=== PATIENT | female | born 1955 | race Caucasian/White ===

== ENCOUNTER 2020-07-20 11:40 | Inpatient (IN) | payer OTHER ==
[~2020-07-20] VITALS: Ht 177.8 cm; Wt 131.5 kg
--- NOTE | ~2020-07-20 | HC ---
[facility] [place] [address] CONSULTATION Name: BRISEIDA ARCHULETA Room #: 362-P [facility] IN .R.#: [id number] Admission: 07/20/20 Attend Phys: Ramiro Alvarez MD Discharge: Date of : 53 Report #: [id number] THIS REPORT FOR: cc: Jeremi Larios MD, Shyam MD Lundgren, Craig H. MD FACC ~ CC: Ramiro Larios DATE OF SERVICE: 07/20/2020 REASON FOR CONSULTATION: Atrial fibrillation. HISTORY OF PRESENT ILLNESS: The patient is a 64-year-old woman who has had a prior stroke with severe anoxic encephalopathy. She has had a prior PEG tube and tracheostomy and is nonverbal. Apparently, she had a fall at the assisted facility and was dropped 3-1/2-4 feet from a Aleah lift. She sustained a hematoma and laceration to the back of her head. When she presented to the Emergency Room, her atrial fibrillation rates were quite fast. She has also had fevers. It is uncertain whether the assisted facility has been plagued by COVID or not. ALLERGIES: SHE IS ALLERGIC TO QUINAPRIL. MEDICATIONS: Include apixaban 5 mg twice daily, atorvastatin 40 mg daily, digoxin 0.25 mg daily, diltiazem 90 mg every 6 hours, insulin, metoprolol 150 mg twice daily, Protonix, Aldactone 25 mg twice daily. PAST MEDICAL HISTORY: Medical records include a history of stroke, anoxic encephalopathy, sacral decubitus, tracheostomy, bladder infection, diabetes, morbid obesity, and sleep apnea. SOCIAL HISTORY: Not obtainable. FAMILY HISTORY: Not obtainable. REVIEW OF SYSTEMS: Not obtainable. PHYSICAL EXAMINATION: GENERAL: Reveals a comatose woman. VITAL SIGNS: Blood pressure is 133/71, heart rate of 82 and irregular. She is febrile. Weight is 250 pounds, 5 feet 10 inches tall. HEENT: There are neither xanthelasma, subcutaneous xanthomata, oral mucosal, digital cyanosis or kyphoscoliosis present. CHEST: Clear to auscultation and percussion. CARDIAC: An irregularly irregular rhythm with normal S1, S2. [facility] [address] [place] [address] CONSULTATION Name: BRISEIDA ARCHULETA Room #: [facility] IN ..#: [id number] Admission: 07/20/20 Attend Phys: Ramiro Alvarez MD Discharge: Date of : 53 Report #: [id number] ABDOMEN: Soft, obese, nontender. EXTREMITIES: Reveal trace edema. Radial pulses are 2+. NEUROLOGIC: She is encephalopathic. LABORATORY DATA: Sodium is 135, potassium 4.6, and creatinine 0.5. CRP of 118. Troponin of 0. White count is 17, hemoglobin 14, hematocrit 45, and platelet count 244. COVID antigen is negative. Chest x-ray demonstrates no acute abnormalities. EKG: Atrial fibrillation. IMPRESSION: 1. Permanent atrial fibrillation. 2. Prior stroke with encephalopathy, prior PEG and trach placement. 3. Fall with injury. 4. Diabetes. 5. Decubitus ulcer. 6. Fever. RECOMMENDATIONS: 1. Resume rate controlling medications. 2. Atrial fibrillation, rates may be quite challenging to control in this setting until fever and is controlled based on her medication list and the high doses of numerous rate controlling medicines, I suspect that her atrial fibrillation rates have been hard to control in the past. 3. Thyroid function studies have been ordered. 4. Obtain records from prior hospitalization. By: 56 14 Milind Lou MD, [facility] /nt
--- NOTE | ~2020-07-20 | EMS ---
[address] [address] EMS Patient Care Report Name: BRISEIDA ARCHULETA Room #: REG LUIS Roman#: [id number] Admission: 07/20/20 Attend Phys: Discharge: Date of : 53 Report #: [id number] THIS REPORT FOR: //name// Report Transmitted: 07/20/2020 13:18 EMS Care Summary [facility] MED-ACT Incident [id number] @ 07/20/2020 10:56 Incident Location [address] [place] [address] Patient BRISEIDA ARCHULETA Female, 64 Years 1955 Patient Address [address] [place] [address] Patient History Stroke/CVA,Hyperlipidemia, Patient Allergies No known allergies, Patient Medications Atorvastatin, Acetaminophen, Apixaban, Chief Complaint head injury Disposition Transported No Lights/[place] Reason Falls Transported To [facility] Narrative Upon arrival pt was lying on the floor, presented w/o distress. Pt came recently to rehab for post care after having a stroke. Pt would respond to [address] [address] EMS Patient Care Report Name: BRISEIDA ARCHULETA Room #: REG Yoav.#: [id number] Admission: 07/20/20 Attend Phys: Discharge: Date of : 53 Report #: [id number] questions by rolling her eyes. Pt had a trach and oxygen was provided through it at 4 LPM. RN reported that they were transferring the pt into her bed by using the Aleah lift device when the pt slid from the lift and fell head first 3 to 4 feet. Pt had small swelling on R occipital area. RN reported that pt was not on blood thinners and she could be transported to [facility]. RN advised that [facility] was in high volume and then stated [facility] was her hospital references. Crew placed Aleah sheet underneath the pt and then lifted her into the stretcher w/o difficulty. No obvious deformity or injuries have been noticed upon exam. Trach suction x1 on scene. Pt was provided oxygen via NRM that was placed over the trach and sat on 10 LPM. In the unit, punchboard filling machine operator, and continue monitoring VS. Pt vitals were monitored and remained stable during transport. At the facility, ED nurse reported that rehab facility gave her report and reported that pt was on blood thinners. Pt was moved to the assigned bed by sheet lift and then pt care turned over ED nurse. 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,BP: 101/60 M,PULSE: ,RR: R,SPO2: 95 Ox,ETCO2: ,BG: ,PAIN: ,GCS: , 10:54,Call Received 10:54,Psap Call 10:56,Dispatched 10:57,En Route 11:04,On Scene 11:08,At Patient 11:24,Depart Scene 11:25,BP: 101/66 M,PULSE: 140,RR: 16 R,SPO2: 95 Ox,ETCO2: ,BG: ,PAIN: 0,GCS: 6, 11:33,BP: 141/84 M,PULSE: 139,RR: 18 R,SPO2: 95 Ox,ETCO2: ,BG: ,PAIN: 0,GCS: , 11:36,At Destination 12:03,Call Closed Disclaimer v1.1 Copyright 2020 [employer] [address] [address] EMS Patient Care Report Name: BRISEIDA ARCHULETA [id number] Admission: 07/20/20 Attend Phys: Discharge: Date of : 53 Report #: [id number] This EMS Care Summary contains data elements from the applicable legal record (which may be displayed differently). It is designed to provide pertinent information for the following purposes: continuity of care, clinical quality, and state data reporting. The complete legal record is available to ED staff and administrators of the receiving hospital in [facility]'s Patient Tracker. All data is provided "as is."
[2020-07-20 11:41] VITALS: BP 118/78
[2020-07-20] MEDS ORDERED: ACETAMINOP650 MG/20. PER TUBE (11:49)
[2020-07-20] MEDS ORDERED: ELIQUIS5 M1 PER TUBE (11:49)
[2020-07-20] MEDS ORDERED: LIPITOR40 MG PER TUBE (11:50)
[2020-07-20] MEDS ORDERED: DIGOX250 MCG PER TUBE (11:50)
[2020-07-20] MEDS ORDERED: PERIDEX 0.12%473 M1 TOP (11:50)
[2020-07-20] MEDS ORDERED: HORIZANT300 MG PER TUBE (11:51)
[2020-07-20] MEDS ORDERED: DILTIAZEM ER90 M1 PER TUBE (11:51)
[2020-07-20] MEDS ORDERED: GLUCAGON EMERGEN1 M1 SUBQ (11:52)
[2020-07-20] MEDS ORDERED: HUMALOG100 UNIT/1 SUBQ (11:52)
[2020-07-20] MEDS ORDERED: JUVEN PACKET1 EAC1 PER TUBE (11:52)
[2020-07-20] MEDS ORDERED: LANTUS SUBQ (11:53)
[2020-07-20] MEDS ORDERED: SUPER THERAVIT1 EACH PER TUBE (11:54)
[2020-07-20] MEDS ORDERED: TOPROL XL25 MG PER TUBE (11:54)
[2020-07-20] MEDS ORDERED: NORMAL SALINE FL5 ML IV (11:55)
[2020-07-20] MEDS ORDERED: PANTOPRAZOLE SO40 M3 PER TUBE (11:55)
[2020-07-20] MEDS ORDERED: SANTYL OINTMENT30 G1 TOP (12:07)
[2020-07-20] MEDS ORDERED: PRO-STAT AWC L887 ML PER TUBE (12:07)
[2020-07-20] MEDS ORDERED: SPIRONOLACTONE25 MG PER TUBE (12:07)
[2020-07-20 13:55] LABS: ABSOLUTE NEUTROPHILS 12.3 thou/uL (1.4-8.2); BASOPHILS 0.5 % (0.0-2.0); EOSINOPHILS 0.2 % (0.0-3.0); HEMATOCRIT 45.4 % (37.0-47.0); HEMOGLOBIN 14.7 gm/dL (12.0-15.0); LYMPHOCYTES 16.1 % (24.0-44.0); MCH 28.1 pg (26.0-34.0); MCHC 32.4 g/dL (28.0-37.0); MCV 86.5 fL (80.0-100.0); MONOCYTES 11.1 % (1.0-8.0); PLATELET COUNT 244 thou/uL (150-400); POLYS 72.1 % (36.0-66.0); RBC 5.25 mil/uL (4.20-5.00); RDW 16.9 % (10.5-14.5); WBC 17.1 thou/uL (4.0-11.0)
[2020-07-20 14:03] LABS: APTT 27.3 Seconds (24.5-32.8); INR 1.2; PROTIME 12.4 Seconds (9.3-11.4)
[2020-07-20 14:14] LABS: ANION GAP 8 mmol/L (7-16); BUN 21 mg/dL (7-18); CALCIUM 8.9 mg/dL (8.5-10.1); CHLORIDE 98 mmol/L (98-107); CO2 29 mmol/L (21-32); CREATININE 0.5 mg/dL (0.6-1.0); GLUCOSE 153 mg/dL (74-106); POTASSIUM 4.6 mmol/L (3.5-5.1); SODIUM 135 mmol/L (136-145)
[2020-07-20 14:25] LABS: MAGNESIUM 1.8 mg/dL (1.8-2.4); SGOT 25 U/L (15-37); SGPT 19 U/L (30-65); TOTAL BILIRUBIN 0.7 mg/dL (0.2-1.0); TOTAL PROTEIN 7.8 g/dL (6.4-8.2); TROPONIN-I <0.06 ng/mL (<0.06)
[2020-07-20 14:52] LABS: URINE BILIRUBIN NEGATIVE (Negative); URINE BLOOD NEGATIVE (Negative); URINE CLARITY SL CLOUDY; URINE COLOR YELLOW; URINE GLUCOSE-RANDOM* NEGATIVE (Negative); URINE KETONES NEGATIVE (Negative); URINE NITRITE-REFLEX NEGATIVE (Negative); URINE PROTEIN (DIPSTICK) 2+ (Negative); URINE SPECIFIC GRAVITY <= 1.005 (1.005-1.035)
[2020-07-20 14:56] LABS: URINE LEUKOCYTES-REFLEX 3+ (Negative)
[2020-07-20 15:03] LABS: AMORPHOUS PHOSPHATES Many /LPF (None Seen)
[2020-07-20 15:04] LABS: BACTERIA-REFLEX >30 Many /HPF (None Seen)
[2020-07-20 15:06] LABS: CASTS None Seen /LPF (None Seen); SQUAMOUS 4-10 Moderate /LPF (0-3)
[2020-07-20 15:07] LABS: URINE RBC 0-2 Rare /HPF (0-2)
[2020-07-20 16:05] VITALS: BP 127/87
[2020-07-20 16:30] VITALS: BP 127/76
[2020-07-20 17:24] VITALS: BP 126/81
[2020-07-20 17:33] VITALS: BP 126/80
--- NOTE | 2020-07-20 20:09 | NUR ---
ASSUMED CARE APPROX 1715. PT ADMITTED FROM ER TO THIS UNIT. PT W/ TRACH W/ NON-REBREATHER MASK ON @4.5LPM. PT AWAKE AND NONVERBAL. AFIB W/ RVR ON TELE MONITOR. RT CALLED TO ASSIST W/ OXYGEN. PT W/ NO APPARENT PAIN. FEBRILE OF 101. REC'D TYLENOL PER RECTUM IN ER. PT ARRIVED TO UNIT ON CARDIZEM GTT @15MG/HR. TITRATED TO 20MG/HR D/T HR IN 150'S. CONSULTED CARDIOLOGY REGARDING PT'S HR SUSTAINING BTWN 130-160'S. FIRST CALL TO DR. ROE ADVISED TO CONTINUE CARDIZEM GTT W/ NO OTHER INTERVENTION. SECOND CALL TO DR. ROE REGARDING PT'S HR. ORDERS GIVEN TO GIVE CARDIZEM BOLUS 15MG ONE TIME AND LOPRESSOR 5MG Q4 PRN HR>120. BOTH MEDICATIONS GIVEN AND HR IS NOW 100-103. WOUND CARE SAW PT AND MEDICATIONS ORDERED FOR COCCYX WOUND. PT SLOWLY PROGRESSING TOWARDS PLAN OF CARE GOALS.
[2020-07-20 21:19] VITALS: BP 106/64
[2020-07-21] VITALS (8 sets, daily range): BP systolic 106–123; BP diastolic 48–77
[2020-07-21 05:07] LABS: HEMATOCRIT 42.4 % (37.0-47.0); HEMOGLOBIN 13.8 gm/dL (12.0-15.0); MCH 28.3 pg (26.0-34.0); MCHC 32.6 g/dL (28.0-37.0); MCV 86.8 fL (80.0-100.0); RBC 4.88 mil/uL (4.20-5.00); RDW 17.1 % (10.5-14.5); WBC 17.9 thou/uL (4.0-11.0)
[2020-07-21 05:15] LABS: CALCIUM 8.5 mg/dL (8.5-10.1); CREATININE 0.4 mg/dL (0.6-1.0); POTASSIUM 4.2 mmol/L (3.5-5.1)
--- NOTE | 2020-07-21 06:40 | NUR ---
SPENT MAJORITY OF SHIFT TRYING TO GET HR IN CONTROL. DILTIAZEM DRIP AT 20ML/HR, X2 METOPROLOL, PAIN MEDICATION X3, AND 1 TYLENOL SUPPOSITORY. PT NON COMMUNICATIVE. WHITMAN IN PLACE. PEG FLUSHES GREAT. METOPROLOL SUCC CAN NOT BE CRUSHED, SO WHEN CARDIOLOGY ROUNDS WE WILL GET IT CHANGED. LOW LOSS AIR PUMP IN PLACE NOW DUE TO LOW AIDE AND PRESSURE ULCER ON SACRUM.
--- NOTE | 2020-07-21 08:24 | EKG ---
[facility] [address] [place] [address] ELECTROCARDIOGRAM REPORT Name: BRISEIDA ARCHULETA Room #: 362-P ADM IN M.R.#: [id number] Admission: 07/20/20 Attend Phys: Ramiro Alvarez MD Discharge: Date of : 53 Report #: [id number] THIS REPORT FOR: cc: Jeremi Larios MD, Shyam MD Lundgren, Craig H. MD [facility] ~ THIS REPORT FOR: //name// [facility] ED Test Date: 2020-07-20 Test Time: 13:28:02 Pat Name: BRISEIDA ARCHULETA Department: Room: 362 Gender: F Property Caretaker: REGINA : 1955 Requested By: Gilson Chase Order Number: [id number] MD: Milind Lou Measurements Intervals [place] Rate: 150 P: WA: QRS: 16 QRSD: 79 T: 242 QT: 344 QTc: 544 Interpretive Statements Atrial fibrillation ST depression, probably rate related No previous ECG available for comparison Electronically Signed On 07-21-2020 8:24:35 CDT by Milind Lou [email or web address] <ELECTRONICALLY SIGNED> By: Milind Lou MD, [facility] 07/21/20 0824 1328 1328 Milind Lou MD, [facility] /EPI
--- NOTE | 2020-07-21 15:24 | NUR ---
INITIAL ASSESSMENT: SW reviewed chart and spoke with nursing and attending physician. Pt was admitted from [facility]. Pt placed in Enhanced Isolation due to COVID-19. Pt febrile and on O2 via trach. Pt has trach and peg in place. Pt is on IV abx. Pt's test is negative. JONNIE left voice message for pt's , Corey. Updated clinical info to be faxed the facility for review. JONNIE is following to assist as needed with discharge planning.
[2020-07-22 03:38] VITALS: BP 115/69
--- NOTE | 2020-07-22 05:46 | NUR ---
FOLLOWING POC WITH IVF AND IVPB. VANCO TROUGH CAME BACK AT 13, PHARMACY PUT ORDER FOR NEW RX. SPENT NIGHT CHASING THE HR. 2X LOPRESSOR PRN GIVEN, AND 180 OF DILTIAZEM GIVEN. PUT ORDER FOR RESWAB FOR COVID THIS WILL BE THE SECOND PCR PT IS FROM A FACILITY. PEG TUBE FEEDING INFUSING AT 65ML/HR. OBTAINED MINIMAL AMOUNT OF SPUTUM FROM TRACH TO SEND FOR SPUTUM SAMPLE. PT TEMP HOVERED AT 99.8-100.
[2020-07-22 08:19] VITALS: BP 118/69
[2020-07-22 10:44] LABS: HEMATOCRIT 38.9 % (37.0-47.0); HEMOGLOBIN 12.5 gm/dL (12.0-15.0); MCH 28.3 pg (26.0-34.0); MCHC 32.1 g/dL (28.0-37.0); MCV 88.3 fL (80.0-100.0); RDW 17.1 % (10.5-14.5); WBC 15.4 thou/uL (4.0-11.0)
[2020-07-22 10:55] LABS: ALBUMIN 1.7 g/dL (3.4-5.0); CALCIUM 8.4 mg/dL (8.5-10.1); CREATININE 0.6 mg/dL (0.6-1.0); POTASSIUM 4.5 mmol/L (3.5-5.1); TOTAL BILIRUBIN 0.8 mg/dL (0.2-1.0); TOTAL PROTEIN 7.1 g/dL (6.4-8.2)
[2020-07-22 11:01] VITALS: BP 100/70
[2020-07-22 12:12] LABS: ABSOLUTE NEUTROPHILS 11.6 thou/uL (1.4-8.2); ANISOCYTOSIS SLIGHT; ATYPICAL LYMPHS 1 %; LARGE PLATELETS OCCASIONAL; POIKILOCYTOSIS SLIGHT
[2020-07-22 12:13] LABS: PLATELET COUNT 211 thou/uL (150-400)
--- NOTE | 2020-07-22 14:02 | NUR ---
JONNIE received call from pt's , Shai. Provided update. Pt had repeat COVID test ordered and results are pending. Shai states he does not want pt to return to [facility]. Pt fell from the philomena lift and was brought to the ER. Pt had CVA in February of this year. Pt was hospitalized at [facility]. Then went to [facility], then discharged to [facility]. When [facility] closed, pt was transferred to [facility]. Pt's spouse has been working on a [place] Medicaid application. He is pt's legal guardian/conservator. JONNIE discussed available Medicare days (Acute and SNF). Pt's spouse requests that pt receive higher level of care, than what she was receiving at [facility]. JONNIE discussed options of LTAC or alternate SNF placement. Explained barrier to finding a SNF/LTC facility that will accept a pt with a trach. Pt's spouse verbalized understanding and requests referral to be sent to [facility] for review. JONNIE faxed referral/COVID test results/Rev codes to [facility] and notified liaison of new referral. Awaiting input from [facility] at this time. JONNIE requested attending physician to speak with spouse. JONNIE is following to assist as needed with discharge planning.
[2020-07-22 15:30] VITALS: BP 103/64
--- NOTE | 2020-07-22 17:50 | NUR ---
PT CARE ASSUMED AT 0700, PT AWAKE, NONVERBAL BUT RESPONSE TO PAIN. PT HAS A TRACH WITH A SHIELD,NO SIGNS OF DISTRESS NOTED. CONTINUOS PULSE OX ON PT. PEG TUBE IN PLACE, TUBE FEEDING RUNNING PER ORDER. WHITMAN IN PLACE AND SECURED. WOUND CARE COMPLETED. PT REPOSITIONED EVERY 2 HOURS. UPPER EXTREMITIES ELEVATED ON PILLOWS. FALL PRECAUTIONS IN PLACE. WILL CONTINUE TO MONITOR.
[2020-07-22 19:51] VITALS: BP 113/66
[2020-07-23 02:22] VITALS: BP 113/66
[2020-07-23 04:58] VITALS: BP 118/67
[2020-07-23 07:56] VITALS: BP 113/88
--- NOTE | 2020-07-23 13:01 | NUR ---
JONNIE reviewed chart and spoke with nursing and attending physicain. Pt with low grade fever. Pt is on IV abx. JONNIE contacted [facility] liaison to see if they are able to accept pt to their LTAC or SNF upon discharge. Awaiting input from [facility] at this time. JONNIE is following to assist as needed with discharge planning.
[2020-07-23 16:37] VITALS: BP 117/70
[2020-07-23 17:30] VITALS: BP 121/75
--- NOTE | 2020-07-23 17:42 | NUR ---
PT CARE ASSUMED APPROX 1710. PT UNRESPONSIVE WIHOUT TRACKING OR FOLLOWING COMMANDS. WITHDRAWLS TO PAIN. HEART RATE ELEVATED. VITAL SIGNS OTHERWISE STABLE. PRN AND SCHEDULED MEDS GIVEN FOR RATE CONTROL. WILL F/U. NO DISTRESS NOTED AT THIS TIME.
[2020-07-23 20:00] VITALS: BP 120/66
--- NOTE | 2020-07-23 20:03 | NUR ---
PATIENT TRANSFERED TO . SHE CONT ON TRACH SHEILD AND PEG TUBE. DOES NOT SEEM TO BE IN PAIN AT THIS TIME.
[2020-07-24] VITALS (7 sets, daily range): BP systolic 111–143; BP diastolic 59–87
--- NOTE | 2020-07-24 07:39 | NUR ---
ASSUMED CARE AT 2330. HR ELEVATED PER TELEMETRY IN RAPID AFIB. CARDIZEM PER PEG GIVEN AND HR LOWERED AFTER AN HOUR. ASSESING TELEMETRY CLOSE. AT 0300 HR ELEVATED 130-150'S. IV METOPROLOL GIVEN FOR PRN DOSE. GAVE AM CARDIZEM AND METOPROLOL PER PEG EARLY. TEMP 101.2 THIS SHIFT AND TREATED WITH TYLENOL NOW 98. WORKING ON GOALS AND PLAN OF CARE FOR NOC. DRESSING CHANGE TO COCCYX COMPLETED LAST NOC. TURNED EVERY 2 HOURS FOR COMFORT. CONTINUE TO ASSES CLOSELY. HR RATE NOW 90-110 MORE CONTROLLED.
--- NOTE | 2020-07-24 11:48 | NUR ---
100ml water flush is not adequate to mix the chloe. Recommend change water flushes to 200ml every 6hr and mix 1 packet chloe twice daily. Need approval from physician to increase water flushes.
--- NOTE | 2020-07-24 16:51 | NUR ---
PT CARE ASSUMED APPROX 0700. ASSESSMENTS CHARTED. PT HAS APPEARED TO BE IN PAIN THIS SHIFT. CURRENT PAIN MANAGEMENT POC SEEMED TO BE EFFECTIVE. HEART RATE HAS BEEN ELEVATED ALL SHIFT. MAYITO GLYNN REPORTED TO NOTIFY IF PT SUSTAINS HR >150. HAS NOT YET. WILL CONTINUE TO USE PRN AND CURRENT POC TO MANAGE. TURNING PT Q2HRS AND PRN. PT APPEARS TO BE TOLERATING POC. NO DISTRESS NOTED.
--- NOTE | 2020-07-24 19:25 | NUR ---
pt wound care completed to sacrum per orders at approx 1400.
[2020-07-25 04:00] VITALS: BP 138/69
[2020-07-25 06:53] LABS: HEMATOCRIT 36.5 % (37.0-47.0); HEMOGLOBIN 11.6 gm/dL (12.0-15.0); MCH 27.5 pg (26.0-34.0); MCHC 31.8 g/dL (28.0-37.0); MCV 86.4 fL (80.0-100.0); RBC 4.22 mil/uL (4.20-5.00); RDW 16.8 % (10.5-14.5); WBC 15.4 thou/uL (4.0-11.0)
[2020-07-25 07:04] LABS: CALCIUM 8.6 mg/dL (8.5-10.1); CREATININE 0.6 mg/dL (0.6-1.0); MAGNESIUM 1.9 mg/dL (1.8-2.4); POTASSIUM 4.9 mmol/L (3.5-5.1)
[2020-07-25 07:55] VITALS: BP 129/86
--- NOTE | 2020-07-25 07:58 | NUR ---
ASSUMED CARE OF PATIENT AT 1900 HOURS. PATIENT IS RESPONSIVE TO EXTERNAL STIMULI AND PAIN BUT DOESN'T FOLLOW COMMANDS. HR ELEVATES TO 150 BUT NOT SUSTAINED. PATIENT IS ON CARDIAC MEDS TO STABILIZE HEART RATE. PATIENT FEBRILE; TYLENOL GIVEN TO STABILIZE TEMPERATURE. PATIENT ON IV ANTIBIOTICS. PATIENT SUCTIONING X3 AT [facility]. PATIENT PROGRESSING SLOWLY TO POC. ASSESSMENT CHARTED. PLAN IS CONTINUOUS ABX/ MONITOR LOC/ POSSIBLE D/C TO LT[facility] W/I A FEW DAYS, AWAITING BED.
[2020-07-25 12:30] VITALS: BP 127/81
--- NOTE | 2020-07-25 15:29 | HC ---
[facility] [place] [address] CONSULTATION Name: BRISEIDA ARCHULETA Sanju Room #: 208-P [facility] IN M.R.#: [id number] Admission: 07/20/20 Attend Phys: Ramiro Alvarez MD Discharge: Date of : 53 Report #: [id number] THIS REPORT FOR: cc: Jeremi Larios MD, Shyam MD Jet[place], Allen B. MD ~ CC: Ramiro Larios DATE OF SERVICE: 07/20/2020 WOUND CARE CONSULTATION NOTE LOCATION: [facility]. REASON FOR CONSULTATION: Sacral stage 4 pressure ulcer with sacral osteomyelitis, the patient with morbid obesity, respiratory failure with tracheostomy, diabetes mellitus type 2. HISTORY OF PRESENT ILLNESS: The patient is a 64-year-old woman with immobility from a major stroke in 02/2020. The patient has a history of respiratory failure with tracheostomy and a PEG tube. She is bedridden in a custodial. The patient is admitted with atrial fibrillation and rapid ventricular response. Wound care was consulted due to a sacral pressure sore with history of osteomyelitis. PAST MEDICAL HISTORY: Morbid obesity, diabetes mellitus type 2, major stroke in 02/2020 with anoxic brain damage, history atrial fibrillation with rapid ventricular response, respiratory failure with tracheostomy, history of urinary tract infections. ALLERGIES: QUINAPRIL. MEDICATIONS: See chart. PAST SURGICAL HISTORY: Unknown. PHYSICAL EXAMINATION: GENERAL: Shows a morbidly obese woman, conscious and alert with respiratory failure and a tracheostomy, on trach collar. HEENT: Mucous membranes are moist. NECK: Supple with tracheostomy. ABDOMEN: Obese with a PEG tube. EXTREMITIES: No wounds in lower extremities noted. Foam boots are on. Examination of the patient's back shows a well demarcated 3.5 x 3.5 cm sacral stage IV pressure ulcer, 2.5 cm deep, palpable bone at the base. Wound appears [facility] [address] [place] [address] CONSULTATION Name: BRISEIDA ARCHULETA Sanju Room #: 208[facility].#: [id number] Admission: 07/20/20 Attend Phys: Ramiro Alvarez MD Discharge: Date of : 53 Report #: [id number] with palpable smooth lining of the wound with granulation, considerable exudate. There is moisture-associated dermatitis of the sacral region, perineal region and buttocks. IMPRESSION: 1. Morbid obesity. 2. Immobility. 3. Status post cerebrovascular accident with immobility. 4. Respiratory failure with tracheostomy. 5. Atrial fibrillation with rapid ventricular response. 6. Diabetes mellitus 2 with skin ulcer. 7. Fecal incontinence. 8. Moisture associated dermatitis of gluteal, perineal area. 9. Sacral stage 4 pressure ulcer with known history of osteomyelitis. PLAN: Quarter-strength Dakin's, Kerlix gauze, packing of sacral stage 4 pressure ulcer twice daily, cover with Optifoam. Barrier cream to the skin of the sacral area, perineum and gluteal area. Wound care team will follow. <ELECTRONICALLY SIGNED> By: Anatoly Petty MD 07/25/20 1529 [id number] [id number] Anatoly Petty MD /nt
--- NOTE | 2020-07-25 16:45 | NUR ---
ASSUMMED PT CARE AT APPROXIMATELY 0700. PT NONRESPONSIVE AND GRIMACES WHEN TURNING AND TO MOVEMENT. ASSESSMENT CHARTED. FALL PRECAUTIONS IN PLACE. PT WAS IN APPARENT PAIN AND RECEIVED ANALGESICS. PT'S APPARENT PAIN RELEIVED C ANALGESICS. BLOOD SUGARS STABLE. VITAL SIGNS STABLE. INFORMED DR. SPARKS OF PT'S LAST BM WAS SEVERAL DAYS AGO. NEW ORDERS IMPLEMENTED. AWAITING BM. WOUND CARE COMPLETE. EDUCATED PT'S SPOUSE ABOUT POC. PT'S SPOUSE STATED UNDERSTANDING WITHOUT FURTHER QUESTIONS. PT COMFORTABLE IN BED. NO APPARENT DISTRESS.
[2020-07-25 21:45] VITALS: BP 144/76
[2020-07-26] VITALS (7 sets, daily range): BP systolic 119–154; BP diastolic 76–101
--- NOTE | 2020-07-26 03:14 | NUR ---
PATIENT ALERT AND ORIENTED X1. SLEEPING MOST OF THE NIGHT. IV ABX INFUSED W/O COMPLICATION. THIS NURSE SUCTIONED (IN LINE) AND RECEIVED WHITE SPUTUM. MEDS ARE CRUSHED AND PUT IN PEG TUBE. NO RESIDUAL ON TUBE FEEDING. WHITMAN TO D/D. NO BM AT TIME OF NOTE. PATIENT IS NON VERBAL. CONTINUES TO BE NPO. BS MONITORED PER ORDER AND INSULIN GIVEN NECESSARY. HEART RATE 150, GIVEN IVP METOPROLOL. WILL MONITOR.
--- NOTE | 2020-07-26 11:55 | NUR ---
VASCULAR ACCESS NURSE ROUNDING- THE MIDLINE IS WNL. THIS PATIENT IS ON A HIGH DOSE ON VANCOMYCIN. DEPENDING ON HOW LONG THE IV THERAPY IS FOR AND HOW LONG AGO THE CURRENT MIDLINE WAS PLACED, A PICC IS SUGGESTED IF REPLACEMENT IS NEEDED PRIOR TO D[facility]ARGE TO LTAC.
--- NOTE | 2020-07-26 20:35 | NUR ---
SPOUSE WANTS TO GIVE HIS A CHANCE TO BECOME STRONGER AND HOPEFULLY TAKE HER HOME ONE DAY..POSSIBLE D/C TO [facility] MONDAY...
[2020-07-27 00:25] VITALS: BP 131/89
--- NOTE | 2020-07-27 02:48 | NUR ---
NONVERBAL.OPENS EYES TO PAINFUL STIMULI.PT IS AFIB RVR.METOPROLOL IV/PO GIVEN,DILTIAZEM GIVEN.REPOSITION Q2 HOURS AND NEEDED.WHITMAN TO DD.PEG TUBE INTACT WITH GLUCERNA 1.2 AT 65 ML/HR.<5 CC RESIDUAL NOTED.POSSIBLE GOING TO LTAC TOMORROW.POC CONTINUED.
[2020-07-27 04:20] VITALS: BP 122/84
[2020-07-27 09:00] VITALS: BP 127/85
[2020-07-27 11:13] VITALS: BP 140/93
[2020-07-27] MEDS ORDERED: ZOSYN 3.373.375 GM/1 IV (12:21)
[2020-07-27] MEDS ORDERED: HUMALOG100 UNIT/1 SUBQ (12:21)
[2020-07-27] MEDS ORDERED: LANTUS SUBQ (12:21)
[2020-07-27] MEDS ORDERED: LOPRESSOR100 M1 PER TUBE (12:21)
[2020-07-27] MEDS ORDERED: PACERONE 200 M200 M1 PER TUBE (12:21)
[2020-07-27] MEDS ORDERED: ELIQUIS5 MG PO (12:21)
[2020-07-27] MEDS ORDERED: ACETAMINOPHEN325 M1 PO (12:21)
[2020-07-27] MEDS ORDERED: VANCOMYCIN1.5 GM/300 IV (12:21)
[2020-07-27] MEDS ORDERED: MIRALAX17 GM PER TUBE (12:21)
[2020-07-27 12:52] VITALS: BP 131/89
--- NOTE | 2020-07-27 15:50 | NUR ---
PT DISCHARGING TODAY TO [facility] FAXED DC ORDERS/SUMMARY TO FACILITY RECEIVED CONFIRMATION AND SET UP TRANSPORT BY AMBULANCE FOR [phone]. NOTIFIED FACILITY AND UNIT FAMILY NOTIFIED BY JONNIE.
--- NOTE | 2020-07-27 16:31 | NUR ---
ASSESSMENT CHARTED - MEDS PER MAR - PT RESPONSIVE TO PAIN ONLY. PT TURNED. SUCTIONED WHITE THICK SPUTUM. MARK TUBE FEEDINGS. ACCUCHECKS CHARTED COCERED PER SSI. TRACH SITE C/D/I. PEG TUBE INSITU - FOR TUBE FEEDINGS. PT TO [facility] THIS AFTERNOON - TRANSFERED WITH BELONGINGS. AWARE OF TRANSFER.
--- NOTE | 2020-07-27 17:08 | NUR ---
[facility] with bed avail today. SP with spouse at bedside. he reports he has spoken with Salomon rojas at [facility] and toured. Clarified visiting hours for spouse. DC associate media planner faxed orders and arranged [facility] for 1500. Chart copied. Spouse aware of transport time and no further needs.
== END 2020-07-27 15:15 | DRG 871 ==
LOC: ER 11:40 → EROBS 16:06 → 3W 16:06 → 2N 07-23 17:14
PROVIDERS: Emergency Medicine; Internal Medicine; ADMIT Hospitalist; ATTEND Hospitalist
PROC: 05HB33Z Insertion of Infusion Device into Right Basilic Vein, Percutaneous Approach (ICD-10-PCS; principal; 2020-07-25)
DX: A41.9 Sepsis, unspecified organism (principal); E43 Unspecified severe protein-calorie malnutrition; L89.154 Pressure ulcer of sacral region, stage 4; M46.28 Osteomyelitis of vertebra, sacral and sacrococcygeal region; G93.1 Anoxic brain damage, not elsewhere classified; J96.10 Chronic respiratory failure, unspecified whether with hypoxia or hypercapnia; N39.0 Urinary tract infection, site not specified; Z68.41 Body mass index [BMI] 40.0-44.9, adult; M86.8X8 Other osteomyelitis, other site; I48.21 Permanent atrial fibrillation; G93.40 Encephalopathy, unspecified; J44.9 Chronic obstructive pulmonary disease, unspecified; E66.01 Morbid (severe) obesity due to excess calories; I50.9 Heart failure, unspecified; G47.33 Obstructive sleep apnea (adult) (pediatric); E11.42 Type 2 diabetes mellitus with diabetic polyneuropathy; K21.9 Gastro-esophageal reflux disease without esophagitis; E11.69 Type 2 diabetes mellitus with other specified complication; I11.0 Hypertensive heart disease with heart failure; L30.8 Other specified dermatitis; E11.628 Type 2 diabetes mellitus with other skin complications; I25.10 Atherosclerotic heart disease of native coronary artery without angina pectoris; S00.03XA Contusion of scalp, initial encounter; B96.4 Proteus (mirabilis) (morganii) as the cause of diseases classified elsewhere; L53.8 Other specified erythematous conditions; R13.10 Dysphagia, unspecified; N31.9 Neuromuscular dysfunction of bladder, unspecified; Z20.828 Contact with and (suspected) exposure to other viral communicable diseases; K59.00 Constipation, unspecified; Z66 Do not resuscitate; Z79.01 Long term (current) use of anticoagulants; Z93.0 Tracheostomy status; Z79.899 Other long term (current) drug therapy; Z88.8 Allergy status to other drugs, medicaments and biological substances; Z79.4 Long term (current) use of insulin; Z93.1 Gastrostomy status; Y93.89 Activity, other specified; Y92.128 Other place in nursing home as the place of occurrence of the external cause; Y99.8 Other external cause status; W17.89XA Other fall from one level to another, initial encounter
CPT/HCPCS: 10081; 10879